=== PATIENT | female | born 1965 | race Caucasian/White ===

== ENCOUNTER → 2017-10-05 | Outpatient (CLI) | payer BC ==
--- NOTE | 2017-10-06 11:40 | MM ---
Reason for exam: screening (asymptomatic). Last mammogram was performed 13 years and 3 months ago. History: Excisional biopsy of the right breast. Physical Findings: A clinical breast exam by your physician is recommended on an annual basis and results should be correlated with mammographic findings. MG 3D Screening Mammo W/Cad Bilateral CC and MLO view(s) were taken. Prior study comparison: July 10, 2004, bilateral diagnostic mammogram. June 22, 2003, right breast special view mammogram. There are scattered fibroglandular densities. Finding: There are typically benign calcifications in the right breast. No suspicious abnormality. Post excisional biopsy change on the right breast. ASSESSMENT: Benign, BI-RAD 2 RECOMMENDATION: Routine screening mammogram of both breasts in 1 year.
== END | disposition home or self-care (01) ==
LOC: RADMAMWWP 07:44
PROVIDERS: ATTEND Family Medicine
DX: Z12.31 Encounter for screening mammogram for malignant neoplasm of breast (principal)
CPT/HCPCS: 77063; 77067

== ENCOUNTER → 2020-09-10 | Outpatient (CLI) | payer BC ==
--- NOTE | 2020-09-11 11:19 | MM ---
Reason for exam: screening (asymptomatic). Last mammogram was performed 1 year and 9 months ago. History: Patient is postmenopausal. Excisional biopsy of the right breast. Took hormonal contraceptives for 5 years. Physical Findings: A clinical breast exam by your physician is recommended on an annual basis and results should be correlated with mammographic findings. MG 3D Screening Mammo W/Cad Bilateral CC and MLO view(s) were taken. Prior study comparison: December 23, 2018, bilateral MG 3d screening mammo w/cad. October 05, 2017, bilateral MG 3d screening mammo w/cad. There are scattered fibroglandular densities. There are benign appearing round calcifications in the right breast. There is chronic nodularity in the left breast. There is no discrete abnormality. ASSESSMENT: Benign, BI-RAD 2 RECOMMENDATION: Routine screening mammogram of both breasts in 1 year.
== END | disposition home or self-care (01) ==
LOC: RADMAMWWP 07:46
PROVIDERS: ATTEND Family Medicine
DX: Z12.31 Encounter for screening mammogram for malignant neoplasm of breast (principal)
CPT/HCPCS: 77063; 77067

== ENCOUNTER 2021-09-27 07:03 | Day surgery (SDC) | payer BC ==
[2021-09-24 16:05] VITALS: BMI 37.4
[~2021-09-27 07:03] MED LIST: DEXAMETHASONE SOD PHOSPHATE 4 MG/ML 1 ML VIAL IV ONE; HYDROmorphone 0.5 MG/0.5 ML SYRINGE IVP PRN; LACTATED RINGERS 1,000 ML IV SCH; LIDOCAINE 1% (10MG/ML) FOR IV START INTRADERMA PRN; MIDAZOLAM 2 MG/2 ML VIAL IV PRN; ONDANSETRON 4 MG/2 ML VIAL IVP ONE
[2021-09-27 07:49] LABS: Glucose,Whole Blood 94 mg/dL (75-99)
[2021-09-27] MEDS ORDERED: ePHEDrine 50 MG/ML 1 ML VIAL ONE (08:20)
[2021-09-27] MEDS ORDERED: PROPOFOL 10 MG/ML 20 ML VIAL IV ONE (08:20)
[2021-09-27] MEDS ORDERED: LIDOCAINE 1% INJ 10MG/ML (20 ML MDV) ONE (08:20)
[2021-09-27] MEDS ORDERED: GLYCOPYRROLATE 0.2 MG/ML 2 ML VIAL ONE (08:20)
[2021-09-27] MEDS ORDERED: fentaNYL (PF) 50 MCG/ML 2 ML AMP ONE (08:20)
[2021-09-27] MEDS ORDERED: MIDAZOLAM 2 MG/2 ML VIAL ONE (08:20)
[2021-09-27] MEDS ORDERED: BUPIVACAINE (PF) 0.25% 30 ML VIAL INTRAARTIC ONE (08:44)
[2021-09-27] MEDS ORDERED: ceFAZolin 1,000 MG in SODIUM CHLORIDE 0.9% 1,000 ML IRRIGATION ONE (08:46)
[2021-09-27] MEDS ORDERED: LACTATED RINGERS 1,000 ML IV ONE ×2 (09:27)
[2021-09-27 10:28] VITALS: TEMP 97.9
--- NOTE | 2021-09-27 10:40 | P.OP ---
Date of Procedure: 09/27/21 Preoperative Diagnosis: 1. Hallux valgus right foot 2. Hammertoe second right foot Postoperative Diagnosis: 1. Same 2. Same Procedure(s) Performed: 1. Lapidus bunionectomy right foot 2. Hammertoe correction second digit right foot Implants: Lapiplasty plates and screws Arthrex hammertoe implant Anesthesia: VICKIE Surgeon: Thanh Ngo Estimated Blood Loss (ml): 3 Pathology: none sent Condition: stable Disposition: PACU Description of Procedure: The patient was brought into the operating room and placed on the table supine position. Timeout was taken to confirm correct patient identifiers, correct procedure, and correct site of surgery. When all staff in the room were in agreement with the timeout, the patient was induced and placed under general anesthesia. An ankle block was performed with 30cc of Marcaine. A well-padded tourniquet was placed on the right ankle and then the right foot was prepped and draped in the usual manner. The foot was exsanguinated with an Esmarch bandage and the tourniquet inflated to 250 mmHg. Attention was first directed over the medial aspect of the first metatarsal phalangeal joint, where a linear incision was made between the neurovascular structures. It was deepened down to the saphenous tissue careful to identify, avoid, and retract any neurovascular structures and cauterize any bleeding vessels. Dissection was continued down to the first metatarsal phalangeal joint capsule. 2 semi-elliptical converging incisions are made along the medial aspect of the first metatarsal phalangeal joint and then the interposing piece of capsule was removed. The capsule was reflected from its osseous attachments on the medial plantar aspects of the first metatarsal head. The sesamoid apparatus was distracted plantarly and then the lateral sesamoid collateral ligament was transected and a lateral capsulotomy performed. Attention was directed over the dorsal aspect of the foot where a 6 cm incision was made centered over the tarsometatarsal joint medial to the extensor hallucis longus tendon. The incision was deepened down to the saphenous tissue careful to identify, avoid, and retract any neurovascular structures and cauterize any bleeding vessels. Dissection was then continued down to the periosteum and capsule and the same area. An incision was made medial to the extensor hallucis longus tendon to these tissues. Subperiosteal dissection was performed to expose the first tarsometatarsal joint. An osteotome was inserted into the joint to free the soft tissue attachments. A wire was placed through the medial aspect of the base of the first metatarsal to act as a joystick for frontal plane correction of the deformity. A fulcrum/joint seeker was then placed into the first tarsometatarsal joint. A Small stab incision was made on the lateral side of second metatarsal and bluntly dissected along the second metatarsal. The intermetatarsal angle reduction clamp was then placed over the second metatarsal and then medially on the flare of the base of the first metatarsal. While simultaneously holding the frontal plane correction and position the reduction clamp was advanced to close the intermetatarsal angle. Fluoroscopic imaging was used to check the amount of correction. Once the frontal plane rotation as well as the transverse plane to 40 were fully corrected a guidepin was then placed through the reduction clamp to lock it in place. The cut guide was placed over the joint seeker and held in place with pins. Fluoroscopy was used to check the alignment to make sure there was enough bone resection. Once adequate a third pin was placed through the cut guide to lock it in place. A sagittal saw was then used to resect the articular surface of the base of first metatarsal and distal medial cuneiform. The locking pin for the cut guide was removed and then the cut guide was removed. Joint seeker was also removed at this time. The distraction device was placed over the pins and the joint opened to allow access for the cut portions of bone. The cut portions of bone were removed. And then the wound was explored for any remaining pieces of bone. Once fully clean that wound is irrigated thoroughly with antibiotic saline. Then a 2 mm drill bit was used to aggressively fenestrate the conjoining surfaces of the arthrodesis site. The pin through the angle reduction clamp was removed and the fulcrum reinserted at the lateral side of the base of the first metatarsal. Then the distractor was reversed and then was used to compressed the arthrodesis site while holding the great toe dorsiflexed. The compression was done until the arthrodesis site was fully compressed. Once fully compressed fluoroscopy was used to make sure that the correction was maintained at that there was indeed adequate bony contact at the arthrodesis site. Lateral view also show that there was no plantar angulation. Once that was satisfactory of threaded olive wire was placed from dorsal proximal to distal plantar for point of fixation. Then the medial plate was positioned over the arthrodesis site and under direct fluoroscopic visualization was adjusted until the placement was ideal then temporarily fixated. The 2 internal screws were placed first. Then the temporary fixation was removed and the most distal and proximal screws inserted. Fluoroscopic imaging showed that the plate was properly positioned. Then the distractor and guidepins were removed and then the dorsal plate was positioned under fluoroscopy and adjusted into ideal alignment and then temporarily fixated. The 2 screws closest to the arthrodesis site were placed first and then the temporary fixation removed and the most distal and proximal screws inserted through the plate. The olive wire was then removed and fluoroscopic imaging was used to check the position of the plates and the overall correction of the deformity. Intermetatarsal angle was corrected, the sesamoids were properly aligned and there was good compression maintain at the arthrodesis site. All wounds were then thoroughly irrigated with antibiotic saline. The first metatarsal phalangeal joint capsule was closed with 0 Vicryl while holding the great toe to correct position. The deep tissue on the dorsal incision was also closed with 0 Vicryl. All incisions were closed with 4-0 Monocryl subcutaneously. The medial dorsal incisions were closed with 4-0 Stratafix in a running subcuticular manner. Dermal glue was applied to all incisions. Steri-Strips are placed across all incisions. Then attention directed over the dorsal aspect of the proximal phalangeal joint right second toe. A linear incision was made over the joint was deepened under the saphenous tissue careful to identify, avoid, and retract any neurovascular structures and cauterize any bleeding vessels dissection continued medially and laterally around the occipital interphalangeal joint. The capsule and extensor tendon were resected through the proximal interphalangeal joint is collateral ligaments were also released. A sagittal saw was used to resect the head of the proximal phalanx in the articular surface of the base of middle phalanx. The guidewires and placed in the central aspect of the medullary canal the proximal phalanx and advancedunder fluoroscopy. 3 mm drill bit was placed over the wire and drilled to the appropriate depth. The wire was removed and placed at the central aspect of the base of middle phalanx and advanced up second digit. Small portion of the wire was left protruding the base of middle phalanx where the cannulated drill was again inserted and then advanced to proper depth. The guidewires and retracted partially the hammertoe implant was then threaded into the drill hole the middle phalanx until it was fully seated which was confirmed under fluoroscopy. Then the digit was distracted and the occipital portion the implant was inserted and the drill hole in the proximal phalanx and then impacted until it was bony contact at the same. Fluoroscopy confirmed the proper position of the implant as well as the rectus alignment of the toe. The wire was advanced to deployed the legs on the proximal part of the implant and then the guidewire was backed out and removed. Wound is irrigated thoroughly with antibiotic saline. Skin was closed with 3-0 nylon. An Arthrex jumpstart dressing was placed over all incisions. Then a bulky dry dressing applied to the left foot. Tourniquet was released and capillary refill return to all digits on the left foot. Then the patient was placed in a well-padded, well molded plaster posterior mold/sugar tong splint. Ankle was held in neutral position until the splint was dried. Then anesthesia was reversed and the patient was taken recovery with vital signs stable.
[2021-09-27 10:59] VITALS: RESP 16
[2021-09-27 11:49] VITALS: BP 111/68; PULSE 66
== END 2021-09-27 12:12 | disposition home or self-care (01) ==
LOC: OR 07:03
PROVIDERS: ATTEND Podiatrist
DX: M20.11 Hallux valgus (acquired), right foot (principal); M20.41 Other hammer toe(s) (acquired), right foot; E78.5 Hyperlipidemia, unspecified; I10 Essential (primary) hypertension; J45.909 Unspecified asthma, uncomplicated; E11.9 Type 2 diabetes mellitus without complications; Z97.3 Presence of spectacles and contact lenses; Z98.891 History of uterine scar from previous surgery; E66.9 Obesity, unspecified; Z68.37 Body mass index [BMI] 37.0-37.9, adult; I77.6 Arteritis, unspecified; Z82.49 Family history of ischemic heart disease and other diseases of the circulatory system; Z98.42 Cataract extraction status, left eye; Z98.890 Other specified postprocedural states; Z79.899 Other long term (current) drug therapy; Z79.84 Long term (current) use of oral hypoglycemic drugs
CPT/HCPCS: 28285; 28297; C1713; J2250; J1100; J0690 ×2; J2405; J2001; J3010; J2704

== ENCOUNTER → 2022-03-19 | Outpatient (CLI) | payer BC ==
--- NOTE | 2022-03-19 13:36 | US ---
EXAMINATION TYPE: US venous doppler duplex LE RT DATE OF EXAM: 03/19/2022 1:23 PM COMPARISON: NONE CLINICAL HISTORY: R791 ABN COAGULATION PROFILE. Elevated D-Dimer. Right lower extremity swelling SIDE PERFORMED: Right TECHNIQUE: The lower extremity deep venous system is examined utilizing real time linear array sonog tamanna with graded compression, doppler sonography and color-flow sonography. VESSELS IMAGED: Common Femoral Vein Deep Femoral Vein Greater Saphenous Vein * Femoral Vein Popliteal Vein Small Saphenous Vein * Proximal Calf Veins (* superficial vessels) Right Leg: Negative for DVT Grayscale, color doppler, spectral doppler imaging performed of the deep veins of the lower extremiti es. There is normal flow, compressibility, vascular waveforms. IMPRESSION: No evidence of deep vein thrombosis of the right lower extremity.
== END | disposition home or self-care (01) ==
LOC: RADUSWWP 12:46
PROVIDERS: ATTEND Family Medicine
DX: R79.1 Abnormal coagulation profile (principal)

== ENCOUNTER → 2022-03-21 | Outpatient (CLI) | payer BC ==
--- NOTE | 2022-03-24 16:49 | MM ---
Reason for Exam: Screening (asymptomatic). Last mammogram was performed 1 year(s) and 6 month(s) ago. Patient History: Menarche at age 14. First Full-Term at age 28. Postmenopausal. Patient has history of breast feeding. Patient used Hormonal Contraceptives for 5 years. Excisional Biopsy on the Right side. Risk Values: Tereza 5 year model risk: 1.5%. NCI Lifetime model risk: 9.3%. Prior Study Comparison: 07/10/2004 Bilateral Diagnostic Mammogram, [facility]. 10/05/2017 Bilateral Screening Mammogram, [facility]. 12/23/2018 Bilateral Screening Mammogram, [facility]. 09/10/2020 Bilateral Screening Mammogram, [facility]. Tissue Density: There are scattered fibroglandular densities. Findings: Analyzed By CAD. Benign calcifications within the right breast. No significant interval changes are evident. Stable nodularity is within the left breast. No suspicious groups of microcalcifications, spiculated or lobular masses, architectural distortion or other secondary signs of malignancy are mammographically apparent. Overall Assessment: Benign, BI-RAD 2 Management: Screening Mammogram of both breasts in 1 year. A negative mammogram report should not preclude additional follow up of suspicious palpable abnormalities. Patient should continue monthly self breast exam. A clinical breast exam by your physician is recommended on an annual basis and results should be correlated with mammographic findings. Electronically signed and approved by: Lionel Ingram D.O. Radiologis
== END | disposition home or self-care (01) ==
LOC: RADMAMWWP 07:54
PROVIDERS: ATTEND Family Medicine
DX: Z12.31 Encounter for screening mammogram for malignant neoplasm of breast (principal); Z78.0 Asymptomatic menopausal state
CPT/HCPCS: 77063; 77067

== ENCOUNTER → 2023-05-21 | Outpatient (CLI) | payer BC ==
--- NOTE | 2023-05-22 08:34 | MM ---
Reason for Exam: Screening (asymptomatic). Last mammogram was performed 1 year(s) and 2 month(s) ago. Patient History: Menarche at age 14. First Full-Term at age 28. Postmenopausal. Patient has history of breast feeding. Patient used Hormonal Contraceptives for 5 years. Excisional Biopsy on the Right side. Risk Values: Tereza 5 year model risk: 1.6%. NCI Lifetime model risk: 9.1%. Prior Study Comparison: 12/23/2018 Bilateral Screening Mammogram, [facility]. 09/10/2020 Bilateral Screening Mammogram, [facility]. 03/21/2022 Bilateral MG 3D screening mammo w/cad, [facility]. Tissue Density: The breast tissue is almost entirely fat. Findings: Analyzed By CAD. There is no suspicious group of microcalcifications or new suspicious mass. Overall Assessment: Negative, BI-RAD 1 Management: Screening Mammogram of both breasts in [address] [facility] will attempt to contact patient to return for supplemental views and ultrasound if indicated. Patient should continue monthly self-breast exams. A clinical breast exam by your physician is recommended on an annual basis. This exam should not preclude additional follow-up of suspicious palpable abnormalities. Note on Tereza scores and lifetime risk: 1. A Tereza score greater than 3% is considered moderate risk. If this is the case, consider specialist referral to assess eligibility for a risk reducing agent. 2. If overall lifetime risk for the development of breast cancer is 20% or higher, the patient may qualify for future screening with alternating mammogram and breast MRI. Electronically signed and approved by: Osmany Brock DO
== END | disposition home or self-care (01) ==
LOC: RADMAMWWP 07:46
PROVIDERS: ATTEND Family Medicine
DX: Z12.31 Encounter for screening mammogram for malignant neoplasm of breast (principal); Z78.0 Asymptomatic menopausal state
CPT/HCPCS: 77063; 77067

== ENCOUNTER → 2024-03-17 | Outpatient (CLI) | payer BC ==
--- NOTE | 2024-03-17 18:33 | XR ---
EXAMINATION TYPE: XR toes RT DATE OF EXAM: 03/17/2024 COMPARISON: NONE HISTORY: 58-year-old female pain, L97.519 non pressure ulcer TECHNIQUE: 3 views coned-down right fourth toe FINDINGS: A fusion screw across the second PIP joint. No acute fracture, subluxation, or dislocation. Flexion of the toes cause some limitation in assessment. Some additional midfoot fusion hardware is partially visualized on the lateral view. No periostitis or osteolysis. IMPRESSION: Images coned down onto the right fourth toe. No acute osseous abnormality seen. No radiographic evide nce for osteomyelitis.
== END | disposition home or self-care (01) ==
LOC: RADXRMAIN 11:19
PROVIDERS: ATTEND Family Medicine
DX: L97.519 Non-pressure chronic ulcer of other part of right foot with unspecified severity (principal)

== ENCOUNTER → 2024-10-21 | Outpatient (CLI) | payer BC ==
--- NOTE | 2024-10-21 15:06 | MM ---
Reason for Exam: Screening (asymptomatic). Last mammogram was performed 1 year(s) and 5 month(s) ago. Patient History: Menarche at age 14. First Full-Term at age 28. Postmenopausal. Patient has history of breast feeding. Patient used Hormonal Contraceptives for 5 years. Excisional Biopsy on the Right side. Risk Values: Tereza 5 year model risk: 1.7%. NCI Lifetime model risk: 8.7%. Prior Study Comparison: 09/10/2020 Bilateral Screening Mammogram, [facility]. 03/21/2022 Bilateral MG 3D screening mammo w/cad, [facility]. 05/21/2023 Bilateral MG 3D screening mammo w/cad, [facility]. Tissue Density: There are scattered areas of fibroglandular density. Findings: Analyzed By CAD. There is no suspicious group of microcalcifications or new suspicious mass in either breast. Chronic nodularity left breast. Benign calcifications. Overall Assessment: Benign, BI-RAD 2 Management: Screening Mammogram of both breasts in 1 year. . Patient should continue monthly self-breast exams. A clinical breast exam by your physician is recommended on an annual basis. This exam should not preclude additional follow-up of suspicious palpable abnormalities. Note on Tereza scores and lifetime risk: 1. A Tereza score greater than 3% is considered moderate risk. If this is the case, consider specialist referral to assess eligibility for a risk reducing agent. 2. If overall lifetime risk for the development of breast cancer is 20% or higher, the patient may qualify for future screening with alternating mammogram and breast MRI. [facility], , 10/21/2024 3:04 PM. Electronically signed and approved by: Asa Amador M.D. Radiologis
== END | disposition home or self-care (01) ==
LOC: RADMAMWWP 14:32
PROVIDERS: ATTEND Family Medicine
DX: Z12.31 Encounter for screening mammogram for malignant neoplasm of breast (principal); R92.323 Mammographic fibroglandular density, bilateral breasts; R92.1 Mammographic calcification found on diagnostic imaging of breast; Z78.0 Asymptomatic menopausal state; Z92.0 Personal history of contraception
CPT/HCPCS: 77063; 77067